=== PATIENT | female | born 1960 ===

== ENCOUNTER → 2018-10-21 | Day surgery (SDC) | payer OTHER ==
[~2018-10-21] MED LIST: DICLOFENAC POTA50 MG PO; ENALAPRIL MALEA20 MG PO; HYDROCHLOROTHIA25 MG PO; PROGESTERONE100 MG PO; [UNRECOGNIZED DRUG - OTHER] PO
== END | disposition home or self-care (01) ==
LOC: ADM 10-16 11:15 → CIR.AMB 07:21
DX: N87.0 Mild cervical dysplasia (principal); N72 Inflammatory disease of cervix uteri